=== PATIENT | female | born 1955 | race Caucasian/White ===

== ENCOUNTER → 2018-06-11 | Outpatient (CLI) | payer MEDICARE, OTHER ==
[~2018-06-11] MED LIST: ASPI325 PO; ATOR40TA PO; Daily Multiple1 EACH PO; FISH1000 PO; Lisinopril2.5 MG; MAGOXI400 PO; METF500 PO; METO25ER PO
== END ==
LOC: LAB SHORT 17:03 → LAB 17:03
DX: L08.9 Local infection of the skin and subcutaneous tissue, unspecified (principal)
CPT/HCPCS: 87070; 87205

== ENCOUNTER 2018-12-10 06:04 | Day surgery (SDC) | payer MEDICARE, OTHER ==
[~2018-12-10] VITALS: Ht 167.6 cm; Wt 78.8 kg
[~2018-12-10 06:04] MED LIST changes: +ROSU10TA
--- NOTE | 2018-12-10 08:43 | NUR ---
12/10/18 0843 Dejah Melgar DIMZeeshan SIZE BRUISE NOTED ON THE LEFT FOREARM
--- NOTE | 2018-12-10 10:37 | NUR ---
12/10/18 Jose Eduardo Kurtz PT AWAKE, ALERT, ORIENTED. PT DENIES ANY PAIN OR NAUSEA. PT TOLERATING WATER AND COOKIES. PT RESTING ON RECLINER WITH FAMILY AT CHAIR SIDE. PT DRESSING ON LEFT SHOULDER IS CLEAN AND DRY. CAP REFILL ON LEFT EXTREMETIES LESS THAN 3 SECS. PT ABLE TO MOVE LEFT WRIST AROUND AND LEFT FINGERS. PT COMMUNICATES WELL AND IS SMILING WHILE TALKING. WILL CONTINUE TO MONITOR.
== END 2018-12-10 10:53 | disposition home or self-care (01) ==
LOC: ORSCSDS 06:04
PROVIDERS: Orthopaedic Surgery
PROC: 0RBK4ZZ Excision of Left Shoulder Joint, Percutaneous Endoscopic Approach (ICD-10-PCS; principal; 2018-12-10 07:30)
PROC: 0RNK4ZZ Release Left Shoulder Joint, Percutaneous Endoscopic Approach (ICD-10-PCS; principal; 2018-12-10 07:30)
PROC: 0LQ24ZZ Repair Left Shoulder Tendon, Percutaneous Endoscopic Approach (ICD-10-PCS; principal; 2018-12-10 07:30)
DX: M75.122 Complete rotator cuff tear or rupture of left shoulder, not specified as traumatic (principal); I10 Essential (primary) hypertension; E11.9 Type 2 diabetes mellitus without complications; F41.9 Anxiety disorder, unspecified; Z87.891 Personal history of nicotine dependence; Z79.82 Long term (current) use of aspirin; Z79.899 Other long term (current) drug therapy
CPT/HCPCS: 82947; C1713; J0171; J0690; J1100; J1885; J2001; J2250; J2370; J2405; J2704; J3010; J7120

== ENCOUNTER → 2021-04-25 | Outpatient (CLI) | payer OTHER | END | disposition home or self-care (01) | LOC: LAB SHORT 08:17 → PLD 08:17 | DX: L30.8 Other specified dermatitis (principal) | CPT/HCPCS: 88305; 88312; 88313 ==

== ENCOUNTER → 2021-04-25 | Outpatient (CLI) | payer OTHER ==
[2021-04-25 17:54] LABS: Adenovirus F 40/41 Not Detected (NOT DETECT); Astrovirus Not Detected (NOT DETECT); Campylobacter Sp Not Detected (NOT DETECT); Cryptosporidium Not Detected (NOT DETECT); Cyclospora Cayetanensis Not Detected (NOT DETECT); E. Coli O157 Not Detected (NOT DETECT); Entamoeba Histolytica Not Detected (NOT DETECT); Enteroaggregative E. coli-EAEC Not Detected (NOT DETECT); Enteropathogenic E. coli-EPEC Not Detected (NOT DETECT); Enterotoxigenic E. coli-ETEC Not Detected (NOT DETECT); Giardia Lamblia Not Detected (NOT DETECT); Norovirus GI/GII Not Detected (NOT DETECT); Plesiomonas Shigelloides Not Detected (NOT DETECT); Rotavirus A Not Detected (NOT DETECT); Salmonella Sp Not Detected (NOT DETECT); Sapovirus Not Detected (NOT DETECT); Shiga Toxin-prod E. coli-STEC Not Detected (NOT DETECT); Shigella/Enteroin E. coli-EIEC Not Detected (NOT DETECT); Vibrio Cholerae Not Detected (NOT DETECT); Vibrio Sp Not Detected (NOT DETECT); Yersinia Enterocolitica Not Detected (NOT DETECT)
== END | disposition home or self-care (01) ==
LOC: LAB 07:45 → LAB SHORT 07:45
PROVIDERS: Internal Medicine
DX: R19.7 Diarrhea, unspecified (principal); E11.9 Type 2 diabetes mellitus without complications
CPT/HCPCS: 0097U

== ENCOUNTER → 2024-02-09 | Outpatient (CLI) | payer OTHER | LOC: LAB 12:18 → LAB SHORT 12:18 | DX: B35.1 Tinea unguium (principal); L60.2 Onychogryphosis | CPT/HCPCS: 88305; 88312 ==